=== PATIENT | female | born 1980 | race Caucasian/White ===

== ENCOUNTER 2021-10-18 16:50 | Emergency (ER) | payer BC ==
[~2021-10-18] VITALS: Ht 157.5 cm; Wt 72.6 kg
[~2021-10-18 16:50] MED LIST: CIPROFLOXACIN500 M1 PO; DICLOFENAC SODI75 MG PO; HYDROCODONE-AP1 EAC6 PO; IBUPROFEN 800800 MG PO; LEXAPRO 10 MG T10 M2 PO; NORCO 5-325 TA1 EACH PO; ULTRAM 50MG TAB50 MG PO; [UNRECOGNIZED DRUG - REMARK]
[2021-10-18 17:15] LABS: URINE BILIRUBIN NEGATIVE (Negative); URINE BLOOD NEGATIVE (Negative); URINE CLARITY CLEAR; URINE COLOR YELLOW; URINE GLUCOSE-RANDOM NEGATIVE (Negative); URINE KETONES NEGATIVE (Negative); URINE LEUKOCYTES TRACE (Negative); URINE NITRITE NEGATIVE (Negative); URINE PROTEIN NEGATIVE (Negative); URINE UROBILINOGEN 0.2 E.U./dl (0.2-1.0)
[2021-10-18 17:34] LABS: CASTS None Seen /LPF (None Seen); CRYSTALS None Seen /LPF (None Seen); MUCUS None Seen strn/LPF (None Seen); SQUAMOUS >10 Many /LPF (0-3)
[2021-10-18 17:35] LABS: BACTERIA >30 Many /HPF (None Seen); URINE RBC None Seen /HPF (0-2); URINE WBC 0-5 Rare /HPF (0-5)
[2021-10-18] MEDS ORDERED: CEPHALEXIN500 MG PO (17:51)
[2021-10-18] MEDS ORDERED: FLEXERIL PO (17:51)
[2021-10-18 18:04] VITALS: BP 118/79
== END 2021-10-18 18:05 | disposition home or self-care (01) ==
LOC: M.ERS 16:50
PROVIDERS: Physician Assistant
DX: N39.0 Urinary tract infection, site not specified (principal); M54.50 Low back pain, unspecified; Z88.5 Allergy status to narcotic agent